=== PATIENT | male | born 2000 | race Two or more races ===

== ENCOUNTER 2022-01-05 16:14 | Emergency (ER) | payer MEDICAID, OTHER ==
[~2022-01-05] VITALS: Ht 180.3 cm; Wt 79.2 kg
[2022-01-05 23:10] LABS: Basophils # (auto) 0.1 10 ^3/uL (0-0.2); Basophils % (auto) 0.8 % (0.0-2.0); Eosinophils # (auto) 0.1 10 ^3/uL (0-0.8); Eosinophils % (auto) 0.5 % (0.0-7.0); Hemoglobin 15.9 g/dL (13.5-17.5); Lymphocytes # (auto) 2.8 10 ^3/uL (0.4-5.4); Lymphocytes % (auto) 26.5 % (10.0-50.0); Mean Corpuscular Hemoglobin 29.5 pg (28.0-32.0); Mean Corpuscular Hgb Conc. 33.2 g/dL (32.0-36.0); Monocytes # (auto) 1.1 10 ^3/uL (0-1.3); Monocytes % (auto) 10.1 % (0.0-12.0); Neutrophils # (auto) 6.5 10 ^3/uL (1.6-8.6); Neutrophils % (auto) 62.1 % (37.0-80.0); Red Cell Distribution Width 13.4 % (11.8-14.3); White Blood Cell 10.5 10^3/uL (4.4-10.8)
[2022-01-05 23:30] LABS: Albumin 4.8 g/dL (3.4-5.0); Calcium 9.8 mg/dL (8.5-10.1); Potassium 3.7 mmol/L (3.5-5.1); Salicylate 4.1 mg/dL (2.8-20.0)
[2022-01-05 23:32] LABS: BUN/Creatinine Ratio 6.9
[2022-01-05 23:34] LABS: Bilirubin, Total 0.5 mg/dL (0.2-1.0); Total Protein 8.8 g/dL (6.4-8.2)
[2022-01-05 23:39] LABS: Acetaminophen < 2.0 ug/mL (10-30)
[2022-01-06] MEDS ORDERED: LORazepam 0.5 MG TAB PO ONE (02:00)
[2022-01-06] MEDS ORDERED: SODIUM CHLORIDE 0.9% 1,000 ML IV ONE (02:00)
[2022-01-06 06:35] VITALS: BP 137/91
== END 2022-01-06 16:12 | disposition home or self-care (01) ==
LOC: ER 16:19
DX: R45.851 Suicidal ideations (principal); R41.82 Altered mental status, unspecified; F32.9 Major depressive disorder, single episode, unspecified; F41.9 Anxiety disorder, unspecified; F12.10 Cannabis abuse, uncomplicated; F15.10 Other stimulant abuse, uncomplicated; F14.10 Cocaine abuse, uncomplicated; F17.210 Nicotine dependence, cigarettes, uncomplicated
CPT/HCPCS: 36415; 70450; 71045; 80053; 80329; 84484; 85025; 93005; 96360; 96361; 99285; J7030

== ENCOUNTER 2022-08-04 18:10 | Emergency (ER) | payer MEDICAID ==
[~2022-08-04] VITALS: Ht 180.3 cm; Wt 80.0 kg
[2022-08-04 19:32] VITALS: BP 145/97
[2022-08-04] MEDS ORDERED: LORazepam 0.5 MG TAB PO ONE (21:30)
[2022-08-05 03:50] LABS: Basophils # (auto) 0.1 10 ^3/uL (0-0.2); Basophils % (auto) 0.5 % (0.0-2.0); Eosinophils # (auto) 0.1 10 ^3/uL (0-0.8); Eosinophils % (auto) 0.7 % (0.0-7.0); Hematocrit 45.7 % (41.0-53.0); Lymphocytes # (auto) 2.7 10 ^3/uL (0.4-5.4); Lymphocytes % (auto) 24.5 % (10.0-50.0); Mean Corpuscular Hemoglobin 29.9 pg (28.0-32.0); Mean Corpuscular Volume 85.4 fL (80.0-100.0); Monocytes # (auto) 1.1 10 ^3/uL (0-1.3); Monocytes % (auto) 10.3 % (0.0-12.0); Neutrophils # (auto) 6.9 10 ^3/uL (1.6-8.6); Nucleated Red Blood Cells % 0.1 %; Red Blood Cells 5.36 10^6/uL (4.5-5.90); Red Cell Distribution Width 13.2 % (11.8-14.3); White Blood Cell 10.8 10^3/uL (4.4-10.8)
[2022-08-05 04:09] LABS: Salicylate < 1.7 mg/dL (2.8-20.0)
[2022-08-05 04:30] LABS: Albumin 4.6 g/dL (3.4-5.0); BUN/Creatinine Ratio 13.1 (10.0-20.0); Calcium 9.8 mg/dL (8.5-10.1); Potassium 3.7 mmol/L (3.5-5.1)
[2022-08-05 04:31] LABS: Acetaminophen < 2.0 ug/mL (10-30)
[2022-08-05 04:41] LABS: Bilirubin, Total 0.8 mg/dL (0.2-1.0); Total Protein 8.7 g/dL (6.4-8.2)
== END 2022-08-05 05:55 | disposition left against medical advice (07) ==
LOC: EDBD 18:10 → ER 18:10
DX: R45.851 Suicidal ideations (principal); Z53.21 Procedure and treatment not carried out due to patient leaving prior to being seen by health care provider
CPT/HCPCS: 36415; 71045; 80053; 80320; 80329; 85025; 93005

== ENCOUNTER 2023-09-17 15:22 | Inpatient (IN) | payer MEDICAID ==
[~2023-09-17] VITALS: Ht 180.3 cm; Wt 81.1 kg
[2023-09-17] MEDS ORDERED: LORazepam 2MG/ML-1ML VIAL IV ONE (15:45)
[2023-09-17 16:20] LABS: Basophils # (auto) 0.1 10 ^3/uL (0-0.2); Basophils % (auto) 0.5 % (0.0-2.0); Eosinophils # (auto) 0 10 ^3/uL (0-0.8); Hematocrit 44.6 % (41.0-53.0); Hemoglobin 15.4 g/dL (13.5-17.5); Lymphocytes # (auto) 1.7 10 ^3/uL (0.4-5.4); Lymphocytes % (auto) 15.4 % (10.0-50.0); Mean Corpuscular Hemoglobin 30.1 pg (28.0-32.0); Mean Corpuscular Hgb Conc. 34.6 g/dL (32.0-36.0); Mean Corpuscular Volume 86.9 fL (80.0-100.0); Monocytes # (auto) 0.8 10 ^3/uL (0-1.3); Monocytes % (auto) 7.6 % (0.0-12.0); Neutrophils # (auto) 8.5 10 ^3/uL (1.6-8.6); Neutrophils % (auto) 76.5 % (37.0-80.0); Nucleated Red Blood Cells % 0.1 %; Red Blood Cells 5.13 10^6/uL (4.5-5.90); Red Cell Distribution Width 13.3 % (11.8-14.3); White Blood Cell 11.1 10^3/uL (4.4-10.8)
[2023-09-17 16:24] LABS: Chloride 106 mmol/L (98-107); Potassium 3.8 mmol/L (3.5-5.1); Sodium 139 mmol/L (136-145)
[2023-09-17 16:25] LABS: Anion Gap 12 (5-15); Calcium 11.1 mg/dL (8.7-10.4); Carbon Dioxide 21 mmol/L (20-30)
[2023-09-17 16:30] VITALS: PULSE 13; RESP 17; TEMP 98.6; O2SAT 97
[2023-09-17 16:30] LABS: BUN/Creatinine Ratio 6.7 (10.0-20.0); Blood Urea Nitrogen 7 mg/dL (9-23); Glucose 123 mg/dL (74-106)
[2023-09-17] MEDS: SODIUM CHLORIDE 0.9% 1,000 ML IV ONE (16:30)
[2023-09-17] MEDS ORDERED: LORazepam 2MG/ML-1ML VIAL IV PRN (17:15)
[2023-09-17] MEDS ORDERED: MORPHINE SULFATE INJ 2 MG/ml SYRG IV PRN (17:15)
[2023-09-17] MEDS ORDERED: ONDANSETRON HCL 4 MG/2 ML VIAL IV PRN (17:15)
[2023-09-17] MEDS ORDERED: TEMAZEPAM 15 MG CAP PO PRN (17:15)
[2023-09-17] MEDS ORDERED: NITROGLYCERIN 0.4 MG SL TAB SL PRN (17:15)
[2023-09-17] MEDS: dilTIAZem 25 MG/5 ML VIAL IV ONE (17:38)
[2023-09-17 18:00] VITALS: BP 130/60; PULSE 110; RESP 17; O2SAT 97
[2023-09-17] MEDS: SODIUM CHLORIDE 0.9% 1,000 ML IV SCH (18:00)
== END 2023-09-17 18:50 | disposition left against medical advice (07) | DRG 52 ==
LOC: ER 15:22 → TELE 17:05
PROVIDERS: ADMIT Nurse Practitioner; ATTEND Nurse Practitioner
DX: G92.8 Other toxic encephalopathy (principal); F15.10 Other stimulant abuse, uncomplicated; F17.210 Nicotine dependence, cigarettes, uncomplicated; Z53.29 Procedure and treatment not carried out because of patient's decision for other reasons; Y08.89XA Assault by other specified means, initial encounter; Y93.89 Activity, other specified; Y92.89 Other specified places as the place of occurrence of the external cause; Y99.8 Other external cause status
CPT/HCPCS: 36415; 80048; 84484; 85025; 93005; 96361; 96374; G0378